=== PATIENT | female | born 1985 | race Hispanic/Latino ===

== ENCOUNTER 2024-08-23 14:10 | Emergency (ER) | payer SELFPAY ==
[~2024-08-23] VITALS: Ht 160 cm; Wt 64.1 kg
[2024-08-23 14:34] VITALS: PULSE 65; RESP 18; TEMP 99.2; O2SAT 100
[2024-08-23] MEDS ORDERED: KETOROLAC TROMETHAMINE 60 MG/2 ML VIAL IM ONE (15:15)
== END 2024-08-23 15:30 | disposition home or self-care (01) ==
LOC: FSED 14:19
DX: R50.9 Fever, unspecified (principal); M54.50 Low back pain, unspecified; F22 Delusional disorders
CPT/HCPCS: 81003; 81025; 99283